=== PATIENT | male | born 1950 | race Caucasian/White ===

== ENCOUNTER 2023-08-31 05:00 | Inpatient (IN) | payer OTHER, MEDICARE ==
[2023-08-31] MEDS: ACETAMINOPHEN 1000 MG/100 ML BAG IVPB ONE (05:53)
[2023-08-31 06:01] LABS: BASO % 0.5 % (0-2.0); EOS % 0.8 % (0-4.5); HEMATOCRIT 40.5 % (35.4-49); HEMOGLOBIN 14.1 GM/dL (11.7-16.9); LYMPH % 6.5 % (8-40); MCH 36.4 pg (25.7-33.7); MCHC 34.7 g/dl (32.0-35.9); MEAN CELL VOLUME 104.8 fl (80-96); MEAN PLT VOLUME 7.6 fl (7.5-11.1); MONO % 5.7 % (3.8-10.2); NEUT % 86.5 % (42.8-82.8); PLATELET COUNT 281 10^3/uL (134-434); RBC 3.86 M/mm3 (4.00-5.60); RDW 12.5 % (11.9-15.9); WHITE BLOOD COUNT 15.4 K/mm3 (4.0-10.0)
[2023-08-31 06:15] LABS: INR 0.99 (0.83-1.09); PROTHROMBIN TIME (PATIENT) 11.2 SEC (9.7-13.0)
[2023-08-31 06:18] LABS: ACTIVATED PTT 25.7 SECONDS (25.2-36.5)
[2023-08-31 06:21] LABS: POTASSIUM 4.2 mmol/L (3.5-5.1)
[2023-08-31 06:23] LABS: BLOOD UREA NITROGEN 15.9 mg/dL (7-18); CALCIUM 9.6 mg/dL (8.5-10.1)
[2023-08-31 06:24] LABS: ALBUMIN 4.2 g/dl (3.4-5.0); MAGNESIUM 2.1 mg/dL (1.8-2.4)
[2023-08-31 06:26] LABS: CREATININE 0.9 mg/dL (0.55-1.3)
[2023-08-31 06:28] LABS: BILIRUBIN,TOTAL 1.5 mg/dL (0.2-1); TOT PROT 7.8 g/dl (6.4-8.2)
[2023-08-31 06:30] LABS: N-TERMINAL BNP 116.4 pg/ml (5-125)
[2023-08-31] MEDS: SODIUM CHLORIDE 0.9% 500 ML INFUS.BAG IV ONE (06:45)
[2023-08-31] MEDS ORDERED: ONDANSETRON 4 MG/2 ML VIAL ONE (06:45)
[2023-08-31] MEDS: ONDANSETRON 4 MG/2 ML VIAL IVPUSH ONE (06:49)
[2023-08-31] MEDS ORDERED: morphine SULFATE 4 MG/ML VIAL ONE (06:56)
[2023-08-31] MEDS: morphine CARPU-JECT 2 MG/1 ML DISP.SYRIN IVPUSH ONE (07:01)
[2023-08-31] MEDS ORDERED: FAMOTIDINE 20 MG/50 ML IVPB 20 MG/50 ML MG IVPB ONE (08:28)
[2023-08-31] MEDS: FAMOTIDINE 20 MG/50 ML IVPB 20 MG/50 ML MG IVPB ONE (08:29)
[2023-08-31] MEDS: METOCLOPRAMIDE HCL INJECTION 10 MG/2 ML VIAL IVPB ONE (09:28)
[2023-08-31] MEDS ORDERED: METOCLOPRAMIDE HCL INJECTION 10 MG/2 ML VIAL ONE (09:29)
[2023-08-31] MEDS ORDERED: ONDANSETRON 4 MG/2 ML VIAL IVPUSH PRN (10:14)
[2023-08-31] MEDS: SODIUM CHLORIDE 1,000 ML IV SCH (10:46)
[2023-08-31 11:06] LABS: BILIRUBIN,DIRECT 0.3 mg/dL (0.0-0.2)
[2023-08-31] MEDS: PANTOPRAZOLE 40 MG TABLET PO SCH (13:10)
[2023-08-31] MEDS: amLODIPine BESYLATE 10 MG TABLET (FP) PO SCH (13:10)
[2023-08-31] MEDS: LOSARTAN POTASSIUM 50 MG TABLET PO SCH (13:10)
[2023-08-31] MEDS: LEVOTHYROXINE NA 88 MCG TABLET (FP) PO SCH (13:11)
[2023-08-31] MEDS: CLOPIDOGREL BISULFATE 75 MG TABLET (FP) PO SCH (13:11)
[2023-08-31 17:10] VITALS: BMI 29.2
[2023-08-31 18:02] LABS: URINE APPEARANCE CLEAR; URINE BILIRUBIN NEGATIVE (NEGATIVE); URINE COLOR YELLOW; URINE GLUCOSE (UA) NEGATIVE (NEGATIVE); URINE KETONE TRACE (NEGATIVE); URINE LEUK ESTERASE NEGATIVE (NEGATIVE); URINE NITRITE NEGATIVE (NEGATIVE); URINE PROTEIN NEGATIVE (NEGATIVE); URINE UROBILINOGEN 0.2 mg/dL (0.2-1.0)
[2023-08-31] MEDS: CLOPIDOGREL BISULFATE 75 MG TABLET (FP) PO ONE (18:59)
[2023-08-31] MEDS: ZOLPIDEM TARTRATE 5 MG TABLET PO PRN (22:15)
[2023-08-31] MEDS: ROSUVASTATIN CA 20 MG TABLET PO SCH (22:15)
[2023-09-01 08:10] LABS: HEMATOCRIT 33.1 % (35.4-49); HEMOGLOBIN 11.4 GM/dL (11.7-16.9); MCH 36.6 pg (25.7-33.7); MCHC 34.3 g/dl (32.0-35.9); MEAN CELL VOLUME 106.6 fl (80-96); MEAN PLT VOLUME 7.3 fl (7.5-11.1); PLATELET COUNT 194 10^3/uL (134-434); RBC 3.11 M/mm3 (4.00-5.60); RDW 12.6 % (11.9-15.9); WHITE BLOOD COUNT 8.9 K/mm3 (4.0-10.0)
[2023-09-01 08:25] LABS: POTASSIUM 3.7 mmol/L (3.5-5.1)
[2023-09-01 08:27] LABS: CALCIUM 8.4 mg/dL (8.5-10.1)
[2023-09-01 08:28] LABS: ALBUMIN 3.4 g/dl (3.4-5.0); BLOOD UREA NITROGEN 12.1 mg/dL (7-18)
[2023-09-01 08:32] LABS: CREATININE 0.8 mg/dL (0.55-1.3)
[2023-09-01 08:33] LABS: BILIRUBIN,TOTAL 1.4 mg/dL (0.2-1); TOT PROT 6.4 g/dl (6.4-8.2)
[2023-09-01] MEDS: ACETAMINOPHEN 1000 MG/100 ML BAG IVPB ONE (10:27)
[2023-09-01] MEDS: ENOXAPARIN NA (PORCINE) 40 MG/0.4 ML DISP.SYRIN SQ SCH (10:29)
[2023-09-01] MEDS: PANTOPRAZOLE SODIUM 40 MG VIAL IVPUSH SCH (10:35)
[2023-09-01] MEDS ORDERED: LIDOCAINE VISCOUS 2% ORAL/TOP 15 ML UNIT-DOSE CUP MM ONE (11:15)
[2023-09-01] MEDS: DEXTROSE 5%-NORMAL SALINE 1,000 ML IV SCH (11:33)
[2023-09-01] MEDS ORDERED: PHENOL 177 ML SPRAY BOTTLE MM PRN (12:00)
[2023-09-01] MEDS: ACETAMINOPHEN 1000 MG/100 ML BAG IVPB PRN (16:20)
[2023-09-01] MEDS: CLOPIDOGREL BISULFATE 75 MG TABLET (FP) PO ONE (20:46)
[2023-09-02] MEDS: guaiFENesin 200 MG/10 ML 10 ML UNIT-DOSE CUPS PO ONE (05:11)
[2023-09-02] MEDS: CLOPIDOGREL BISULFATE 75 MG TABLET (FP) PO SCH (09:02)
[2023-09-02] MEDS: ACETAMINOPHEN 1000 MG/100 ML BAG IVPB PRN (16:43)
[2023-09-03] MEDS: LIDOCAINE 4% PATCH TP ONE ×2 (05:48→07:29)
[2023-09-03 11:36] VITALS: BP 143/70; PULSE 77; RESP 20; TEMP 98.8
[2023-09-03] MEDS ORDERED: LIDOCAINE PATCH REMOVAL MC ONE (17:00)
== END 2023-09-03 11:11 | disposition home or self-care (01) | DRG 390 ==
LOC: JER 05:00 → JERBED 09:13 → J8W 11:20
PROVIDERS: ATTEND Nurse Practitioner Acute Care
DX: K56.609 Unspecified intestinal obstruction, unspecified as to partial versus complete obstruction (principal); I10 Essential (primary) hypertension; E03.9 Hypothyroidism, unspecified; I25.10 Atherosclerotic heart disease of native coronary artery without angina pectoris; E78.5 Hyperlipidemia, unspecified; K43.2 Incisional hernia without obstruction or gangrene; K57.90 Diverticulosis of intestine, part unspecified, without perforation or abscess without bleeding; K64.8 Other hemorrhoids; Z86.12 Personal history of poliomyelitis; Z90.49 Acquired absence of other specified parts of digestive tract
CPT/HCPCS: 36415; 71045-TC-FY; 74019-TC-FY; 74177-TC; 80053; 81003; 82248; 82272; 83605; 83690; 83735; 83880; 84439; 84443; 84484; 85025; 85027; 85610; 85730; 86850; 86900; 86901; 87086; 93005; 93010; 97116-GP; 99285-25; J0131; Q9967